=== PATIENT | male | born 1955 | race Two or more races ===

== ENCOUNTER 2018-06-14 15:47 | Emergency (ER) | payer OTHER ==
[2018-06-14 16:02] VITALS: BMI 30.2
[2018-06-14] MEDS ORDERED: FAMOTIDINE 20 MG/50 ML IVPB 20 MG/50 ML MG IVPB ONE ×2 (16:08→16:14)
[2018-06-14] MEDS ORDERED: PANTOPRAZOLE SODIUM 40 MG VIAL IVPUSH ONE (16:08)
[2018-06-14] MEDS ORDERED: MAG HYDROX/AL HYDROX/SIMETH 30 ML UNIT-DOSE CUP PO ONE (16:08)
[2018-06-14] MEDS ORDERED: PANTOPRAZOLE SODIUM 40 MG VIAL ONE (16:14)
--- NOTE | 2018-06-14 16:14 | PDOC ---
History of Present Illness - History of Present Illness Initial Comments: 63yo M with PMH of HTN and arthritis presenting with epigastric pain. Patient states this pain started at 12pm. It has been constant with intermittent worsening. The pain is rated 9/10 and described as sharp. He had this pain two weeks ago: it lasted for two hours and went away on its own-- he did not get evaluated by a physician. Patient has arthritis and has been taking meloxicam as prescribed. He has not taken anything for his pain. Never seen a GI doctor. He denies ever having a colonoscopy or endoscopy. No nausea, vomiting, or diarrhea. Last bowel movement was yesterday and was a normal formed brown stool without blood. No fevers, chills, chest pain, or shortness of breath. PCP: Ktahe Hernandez <Lela Mckeon - Last Filed: 06/14/18 19:14> <Ivan Farfan - Last Filed: 06/15/18 06:44> - General Chief Complaint: Pain Stated Complaint: ABD PAIN Time Seen by Provider: 06/14/18 15:50 Past History - Past Medical History COPD: No HTN: Yes Other medical history: ARTHRITIS - Suicide/Smoking/Psychosocial Hx Smoking History: Never smoked Have you smoked in the past 12 months: No Information on smoking cessation initiated: No Hx Alcohol Use: No <Lela Mckeon - Last Filed: 06/14/18 19:14> <Ivan Farfan - Last Filed: 06/15/18 06:44> - Past Medical History Allergies/Adverse Reactions: Allergies Allergy/AdvReac Type Severity Reaction Status Date / Time No Known Allergies Allergy Verified 06/14/18 15:48 Home Medications: Ambulatory Orders Acetaminophen 650 mg PO Q4H PRN #30 tablet 06/14/18 Amlodipine Besylate 5 mg PO DAILY 06/14/18 Famotidine 20 mg PO PRN PRN #20 tablet 06/14/18 Meloxicam 15 mg PO DAILY 06/14/18 Pantoprazole Sodium [Protonix] 40 mg PO DAILY #30 tablet. 06/14/18 Review of Systems - Review of Systems Comments:: Constitutional: no fever, no chills HEENT: no throat pain, no dysphagia Cardiovascular: no chest pain, no palpitations Respiratory: no cough, no shortness of breath Gastrointestinal: +abdominal pain, no nausea Genitourinary: no dysuria, no frequency Musculoskeletal: no myalgia, no arthralgia Skin: no rash, no itching Neurologic: no headache, no weakness <Lela Mckeon - Last Filed: 06/14/18 19:14> *Physical Exam - Vital Signs Last Vital Signs Temp Pulse Resp BP Pulse Ox 61 18 130/74 100 06/14/18 15:47 06/14/18 15:47 06/14/18 15:47 06/14/18 15:47 - Physical Exam Comments: General: Awake, alert, and fully oriented, in position Head: No signs of trauma Eyes: EOMI, sclera anicteric ENT: Dry mucus membranes Neck: Normal ROM, supple Lungs: Lungs clear, Normal breath sounds Cardio: Regular rhythm, S1 and S2 present Abdomen: Tenderness to palpation most focal to epigastrium. Soft, nondistended. No guarding, no rebound, no masses Extremities: Normal range of motion, Distal pulses present SKIN: Warm, Dry, normal turgor Neurologic: Cranial nerves II through XII grossly intact. Normal speech <Lela Mckeon - Last Filed: 06/14/18 19:14> - Vital Signs Last Vital Signs Temp Pulse Resp BP Pulse Ox 98.2 F 79 16 138/78 99 06/14/18 19:48 06/14/18 19:48 06/14/18 19:48 06/14/18 19:48 06/14/18 19:48 <Ivan Farfan - Last Filed: 06/15/18 06:44> ED Treatment Course - LABORATORY CBC & Chemistry Diagram: 06/14/18 16:18 06/14/18 16:18 <Lela Mckeon - Last Filed: 06/14/18 19:14> - LABORATORY CBC & Chemistry Diagram: 06/14/18 16:18 06/14/18 16:18 - ADDITIONAL ORDERS Additional order review: Laboratory Results 06/14/18 06/14/18 06/14/18 16:54 16:18 16:18 Sodium Potassium Chloride Carbon Dioxide Anion Gap BUN Creatinine Creat Clearance w eGFR Random Glucose Lactic Acid 2.7 H* Calcium Total Bilirubin AST ALT Alkaline Phosphatase Troponin I < 0.03 Total Protein Albumin Lipase Urine Color Yellow Urine Appearance Clear Urine pH 8.5 H Urine Protein Negative Urine Glucose (UA) Trace Urine Ketones Negative Urine Blood Trace-intact Urine Nitrite Negative Urine Bilirubin Negative Urine Urobilinogen 0.2 Ur Leukocyte Esterase Negative Urine RBC 2-5 Urine WBC 0-2 Amorphous Phosphates 1+ Urine Bacteria Few 06/14/18 16:18 Sodium 134 L Potassium 3.4 L Chloride 101 Carbon Dioxide 27 Anion Gap 6 L BUN 14 Creatinine 0.9 Creat Clearance w eGFR 85.23 Random Glucose 172 H Lactic Acid Calcium 8.7 Total Bilirubin 0.6 AST 24 ALT 20 Alkaline Phosphatase 74 Troponin I Total Protein 7.2 Albumin 4.1 Lipase 118 Urine Color Urine Appearance Urine pH Urine Protein Urine Glucose (UA) Urine Ketones Urine Blood Urine Nitrite Urine Bilirubin Urine Urobilinogen Ur Leukocyte Esterase Urine RBC Urine WBC Amorphous Phosphates Urine Bacteria 06/14/18 16:18 RBC 5.23 MCV 86.8 MCHC 33.1 RDW 14.5 MPV 8.3 Neutrophils % 84.1 H Lymphocytes % 8.9 Monocytes % 5.1 Eosinophils % 1.6 Basophils % 0.3 - Medications Given in the ED: ED Medications Discontinued Medications Generic Name Dose Route Start Last Admin Trade Name Freq PRN Reason Stop Dose Admin Acetaminophen 1,000 mg 06/14/18 19:11 06/14/18 19:20 Ofirmev Injection - IVPB 06/14/18 19:12 1,000 mg ONCE ONE Administration Al Hydroxide/Mg Hydroxide 30 ml 06/14/18 16:08 06/14/18 16:38 Mylanta Oral Suspension - PO 06/14/18 16:09 30 ml ONCE ONE Administration Famotidine/Sodium Chloride 20 mg in 50 mls @ 100 mls/hr 06/14/18 16:08 16:15 Pepcid 20 Mg Premixed Ivpb - IVPB 06/14/18 16:37 100 mls/hr ONCE ONE Administration Sodium Chloride 1,000 mls @ 1,000 mls/hr 06/14/18 19:11 06/14/18 16:15 Normal Saline - IV 06/14/18 20:10 1,000 mls/hr ASDIR STA Administration Sodium Chloride 1,000 mls @ 1,000 mls/hr 06/14/18 19:12 06/14/18 19:20 Normal Saline - IV 06/14/18 20:11 1,000 mls/hr ASDIR STA Administration Morphine Sulfate 4 mg 06/14/18 16:56 06/14/18 17:02 Morphine Injection - IVPUSH 06/14/18 16:57 4 mg ONCE ONE Administration Pantoprazole Sodium 20 mg 06/14/18 16:08 06/14/18 16:35 Protonix Iv IVPUSH 06/14/18 16:09 20 mg ONCE ONE Administration Sucralfate 1 gm 06/14/18 18:19 06/14/18 18:25 Carafate - PO 06/14/18 18:20 1 gm ONCE ONE Administration <Ivan Farfan - Last Filed: 06/15/18 06:44> Medical Decision Making - Medical Decision Making 63yo M with PMH of HTN and arthritis presenting with epigastric pain. DDX including but not limited to pancreatitis, GERD, gastroenteritis, hepatitis , nephrolithiasis, ischemic colitis CBC, CMP, Lipase, Tpn, Lactate, EKG Protonix, famotidine, maalox, 1L NS Patient likely needs GI follow-up 06/14/18 17:03 Normal Cr Patient with continued 9/10 pain; 4mg morphine ordered CT abd/pelvis ordered 06/14/18 17:09 Pain improved, now 8/[address] EKG: rate 75, QTc 469, NSR 06/14/18 17:35 Pain improved, now 7/10 1g Carafate ordered Pending CT report 06/14/18 18:20 Lactate 2.7 Another 1L NS ordered 1g Ofirmev ordered Repeat lactate ordered Pending nl lactate for d/c home Patient signed out to Dr. Farfan 06/14/18 19:17 <Lela Mckeon - Last Filed: 06/14/18 19:14> - Medical Decision Making 06/15/18 06:44 lactate nl. at the time of ED discharge, tolerating PO, abd nt, pain resolved <Ivan Farfan - Last Filed: 06/15/18 06:44> *DC/Admit/Observation/Transfer <Lela Mckeon - Last Filed: 06/14/18 19:14> <Ivan Farfan - Last Filed: 06/15/18 06:44> Diagnosis at time of Disposition: Abdominal pain Qualifiers: Abdominal location: epigastric Qualified Code(s): R10.13 - Epigastric pain - Discharge Dispostion Disposition: HOME Condition at time of disposition: Stable - Prescriptions Prescriptions: Acetaminophen 650 mg PO Q4H PRN #30 tablet PRN Reason: Pain Famotidine 20 mg PO PRN PRN #20 tablet PRN Reason: abdominal pain Pantoprazole Sodium [Protonix] 40 mg PO DAILY #30 tablet.dr - Referrals Referrals: Mark Diaz MD [Staff Physician] - Cody Scruggs MD [Staff Physician] - - Patient Instructions Printed Discharge Instructions: DI for Abdominal Pain-Adult Additional Instructions: You came into the ED for abdominal pain. We gave you medicines which helped your pain. Prescriptions sent to your pharmacy. Take as instructed. Your imaging showed gallstones. For this we have referred you to a general surgeon, Dr. Scruggs. Call and make an appointment. Your abdominal pain may be related to acid reflux. For this we have referred you to a GI specialist, Dr. Diaz. Call and make an appointment. Follow-up with your primary care doctor this week to discuss this ED visit and to further evaluate your symptoms. Call and make an appointment. You can also take [id number] tylenol or motrin for pain. Follow the instructions on the medication bottle. Immediate medical attention is required if you have: you develop worsening pain , high fevers, persistent nausea, vomiting, or any new or concerning symptoms. If you think you are having an emergency, call for emergency medical services or present to the emergency department right away.
[2018-06-14 16:34] LABS: BASO % 0.3 % (0-2.0); EOS % 1.6 % (0-4.5); HEMATOCRIT 45.4 % (35.4-49); LYMPH % 8.9 % (8-40); MCH 28.7 pg (25.7-33.7); MCHC 33.1 g/dl (32.0-35.9); MEAN CELL VOLUME 86.8 fl (80-96); MEAN PLT VOLUME 8.3 fl (7.5-11.1); MONO % 5.1 % (3.8-10.2); NEUT % 84.1 % (42.8-82.8); PLATELET COUNT 311 K/MM3 (134-434); RBC 5.23 M/mm3 (4.00-5.60); RDW 14.5 % (11.9-15.9); WHITE BLOOD COUNT 10.6 K/mm3 (4.0-10.8)
[2018-06-14] MEDS ORDERED: MAG HYDROX/AL HYDROX/SIMETH 30 ML UNIT-DOSE CUP ONE (16:34)
[2018-06-14] MEDS ORDERED: morphine CARPU-JECT 4 MG/1 ML DISP.SYRIN IVPUSH ONE (16:56)
[2018-06-14] MEDS ORDERED: morphine SULFATE 4 MG/ML VIAL ONE (16:59)
[2018-06-14 17:01] LABS: ALBUMIN 4.1 g/dl (3.4-5.0); ALK PHOS 74 U/L (45-117); ANION GAP 6 MMOL/L (8-16); BILIRUBIN,TOTAL 0.6 mg/dl (0.2-1); BLOOD UREA NITROGEN 14 mg/dl (7-18); CALCIUM 8.7 mg/dl (8.5-10); CHLORIDE 101 mmol/L (98-107); CO2 27 mmol/L (21-32); CREATININE 0.9 mg/dl (0.55-1.3); GLUCOSE,RANDOM 172 mg/dl (74-106); POTASSIUM 3.4 mmol/L (3.5-5.1); SGOT/AST 24 U/L (15-37); SGPT/ALT 20 U/L (13-61); SODIUM 134 mmol/L (136-145); TOT PROT 7.2 g/dl (6.4-8.2)
--- NOTE | 2018-06-14 17:49 | PDOC ---
Attending Attestation - Resident Resident Name: Lela Mckeon - ED Attending Attestation I have performed the following: I have examined & evaluated the patient, The case was reviewed & discussed with the resident, I agree w/resident's findings & plan, Exceptions are as noted - HPI HPI: 06/14/18 17:47 63-year-old male with history of hypertension, arthritis presents with epigastric pain since 12:00 PM. The patient reported that he was in his usual state health when he suddenly had severe epigastric discomfort. No nausea or vomiting. No fevers or chills. No diarrhea. Patient reports 2 weeks ago that is similar incidents were resolved on its own. Patient is unsure this is related to eating. - Physicial Exam PE: 06/14/18 17:47 GENERAL: Awake, alert, and fully oriented, in no acute distress HEAD: No signs of trauma EYES: EOMI, sclera anicteric, conjunctiva clear ENT: Auricles normal inspection, hearing grossly normal, nares patent, Moist mucosa NECK: Normal ROM, supple, ABDOMEN: Soft, +TTP epigastric, LUQ. Piper sign negative. Mcburney negative. No guarding, no rebound. No masses EXTREMITIES: Normal range of motion, no edema. No clubbing or cyanosis. No cords, erythema, or tenderness NEUROLOGICAL: Cranial nerves II through XII grossly intact. Normal speech SKIN: Warm, Dry, normal turgor, no rashes or lesions noted. - Medical Decision Making 06/14/18 17:48 Vital Signs Temp Pulse Resp BP Pulse Ox 61 18 130/74 100 06/14/18 15:47 06/14/18 15:47 06/14/18 15:47 06/14/18 15:47 63-year-old male with history of hypertension presents with epigastric pain. Patient was suspected to have gastritis and was given GERD medications. However , had persistent pain. Though peptic ulcer and gastritis is within the differential, we'll need to consider other etiology such as acute abdominal process, pancreatitis. We'll obtain a CAT scan and pelvis and reassess. 06/14/18 18:28 CBC, BMP 06/14/18 16:18 06/14/18 16:18 CMP Sodium 134 mmol/L (136-145) L 06/14/18 16:18 Potassium 3.4 mmol/L (3.5-5.1) L 06/14/18 16:18 Chloride 101 mmol/L (98-107) 06/14/18 16:18 Carbon Dioxide 27 mmol/L (21-32) 06/14/18 16:18 Anion Gap 6 MMOL/L (8-16) L 06/14/18 16:18 BUN 14 mg/dl (7-18) 06/14/18 16:18 Creatinine 0.9 mg/dl (0.55-1.3) 06/14/18 16:18 Creat Clearance w eGFR 85.23 (>60) 06/14/18 16:18 Random Glucose 172 mg/dl (74-106) H 06/14/18 16:18 Calcium 8.7 mg/dl (8.5-10) 06/14/18 16:18 Total Bilirubin 0.6 mg/dl (0.2-1) 06/14/18 16:18 AST 24 U/L (15-37) 06/14/18 16:18 ALT 20 U/L (13-61) 06/14/18 16:18 Alkaline Phosphatase 74 U/L (45-117) 06/14/18 16:18 Troponin I < 0.03 ng/ml (0.00-0.05) 06/14/18 16:18 Total Protein 7.2 g/dl (6.4-8.2) 06/14/18 16:18 Albumin 4.1 g/dl (3.4-5.0) 06/14/18 16:18 Lipase 118 U/L (73-393) 06/14/18 16:18 Urine Test Results Urine Color Yellow 06/14/18 16:54 Urine Appearance Clear 06/14/18 16:54 Urine pH 8.5 (4.5-8) H 06/14/18 16:54 Urine Protein Negative (NEGATIVE) 06/14/18 16:54 Urine Glucose (UA) Trace (NEGATIVE) 06/14/18 16:54 Urine Ketones Negative (NEGATIVE) 06/14/18 16:54 Urine Blood Trace-intact (NEGATIVE) 06/14/18 16:54 Urine Nitrite Negative (NEGATIVE) 06/14/18 16:54 Urine Bilirubin Negative (NEGATIVE) 06/14/18 16:54 Ur Leukocyte Esterase Negative (NEGATIVE) 06/14/18 16:54 CT pending. 06/14/18 19:13 CT scan shows gallstones but no acute cholecystitis. No other findings. Pt's abdomen feels better. I suspect that this was either biliary colic or gastritis. But given lactic acid of 2.7, will give another liter of IVF and repeat lactic acid. If negative and feeling better, can d/c home. Pt signed out to Dr. Abilio Farfan. Heart Score/ECG Review #1 ECG reviewed & interpreted by me at: 16:45 06/14/18 17:49 NSR 75, no std/corby, normal axis, normal intervals, T wave flat III, avL, QTC 469 msec
[2018-06-14] MEDS ORDERED: SUCRALFATE 1 GM TABLET (FP) PO ONE (18:19)
[2018-06-14] MEDS ORDERED: SUCRALFATE 1 GM/10 ML UNIT DOSE CUPS ONE (18:23)
[2018-06-14 18:26] LABS: LIPASE 118 U/L (73-393)
[2018-06-14] MEDS ORDERED: SODIUM CHLORIDE 1,000 ML IV STA ×2 (19:11→19:12)
[2018-06-14] MEDS ORDERED: ACETAMINOPHEN 1000 MG/100 ML VIAL (NON FORMULARY) IVPB ONE (19:11)
[2018-06-14] MEDS ORDERED: ACETAMINOPHEN INJECTION 100 ML IVPB ONE (19:17)
[2018-06-14 19:49] VITALS: BP 138/78; PULSE 79; TEMP 98.2
[2018-06-14 20:41] LABS: AMORP PHOS 1+ /hpf (NONE SEEN)
--- NOTE | 2018-06-17 10:41 | EKG ---
Test Reason : Blood Pressure : / mmHG Vent. Rate : 075 BPM Atrial Rate : 075 BPM P-R Int : 154 ms QRS Dur : 082 ms QT Int : 420 ms P-R-T Axes : 066 011 049 degrees QTc Int : 469 ms NORMAL SINUS RHYTHM NORMAL ECG NO PREVIOUS ECGS AVAILABLE Confirmed by MELITON DORSEY MD ([id number]) on 06/17/2018 10:41:22 AM Referred By: MD SERNA Confirmed By:MELITON DORSEY MD
== END 2018-06-14 22:25 | disposition home or self-care (01) ==
LOC: FER 15:47
PROC: 3E033NZ Introduction of Analgesics, Hypnotics, Sedatives into Peripheral Vein, Percutaneous Approach (ICD-10-PCS; principal; 2018-06-14)
PROC: 3E033GC Introduction of Other Therapeutic Substance into Peripheral Vein, Percutaneous Approach (ICD-10-PCS; 2018-06-14)
PROC: 3E0337Z Introduction of Electrolytic and Water Balance Substance into Peripheral Vein, Percutaneous Approach (ICD-10-PCS; 2018-06-14)
DX: R10.13 Epigastric pain (principal); I10 Essential (primary) hypertension
CPT/HCPCS: 36415; 74177-TC; 80053; 81003; 81015; 83605; 83690; 84484; 85025; 87086; 93005; 96361; 96365; 96375; 99284-25; J0131; J7030